=== PATIENT | female | born 1975 | race Caucasian/White ===

== ENCOUNTER 2018-03-30 17:41 | Emergency (ER) | payer BC ==
[~2018-03-30] VITALS: Ht 167.6 cm; Wt 74.8 kg
[2018-03-30] MEDS ORDERED: IBU 800 MG TABLET PO (17:57)
[2018-03-30] MEDS ORDERED: TRAMADOL HCL 50 MG TABLET PO (17:57)
== END 2018-03-30 19:14 | disposition home or self-care (01) ==
LOC: ER 17:41
DX: B02.9 Zoster without complications (principal); Z79.891 Long term (current) use of opiate analgesic
CPT/HCPCS: 99283; A4663